=== PATIENT | female | born 2000 | race Caucasian/White ===

== ENCOUNTER 2023-07-15 00:30 | Observation (INO) | payer OTHER ==
[~2023-07-15] VITALS: Ht 162.6 cm; Wt 78.0 kg
[2023-07-15] MEDS ORDERED: PREN-543 PO (01:45)
[2023-07-15 02:02] VITALS: BP 120/70; PULSE 75; TEMP 98
== END 2023-07-15 05:00 | disposition home or self-care (01) ==
LOC: MLD 00:30
PROVIDERS: ADMIT Obstetrics & Gynecology; ATTEND Obstetrics & Gynecology
DX: O26.893 Other specified pregnancy related conditions, third trimester (principal); R10.9 Unspecified abdominal pain; O99.891 Other specified diseases and conditions complicating pregnancy; M54.9 Dorsalgia, unspecified; Z3A.39 39 weeks gestation of pregnancy
CPT/HCPCS: 59025; 81000; G0378